=== PATIENT | male | born 1935 | race Caucasian/White ===

== ENCOUNTER 2018-11-27 11:59 | Observation (INO) ==
[2018-11-27] MEDS ORDERED: Isovue-370 500 ML BOTTLE IVP ONE (12:41)
[2018-11-27 12:51] LABS: Basophils # 0.1 K/mcL (0.0-0.2); Basophils % 0.5 %; Eosinophils # 0.5 K/mcL (0.0-0.6); Eosinophils % 4.1 %; Hematocrit 43.5 % (37.5-50.1); Hemoglobin 15.2 g/dL (12.9-16.9); Immature Granulocytes % 0.5 % (0-4); Lymphocytes # 1.2 K/mcL (0.6-4.6); Lymphocytes % 10.9 %; Mean Corpuscular HGB Conc 34.9 g/dL (31.6-35.5); Mean Corpuscular Hemoglobin 31.2 pg (28.0-33.3); Mean Corpuscular Volume 89.3 fL (83.0-100.0); Monocytes # 0.8 K/mcL (0.0-1.3); Monocytes % 7.3 %; Neutrophils # 8.5 K/mcL (1.6-8.9); Platelet Count 190 K/mcL (140-400); Red Blood Count 4.87 M/mcL (4.19-5.50); Red Cell Distribution Width 12.6 % (11.5-14.5); Segmented Neutrophils % 76.7 %
[2018-11-27 13:15] LABS: BUN/Creatinine Ratio 7 (6-26); Blood Urea Nitrogen 9 mg/dL (8-23); Calcium 9.7 mg/dL (8.6-10.3); Carbon Dioxide 26 mEq/L (23-29); Chloride 94 mEq/L (98-107); Glucose 108 mg/dL (70-105); Osmolality,Calculated 269 (280-300); Potassium 3.6 mEq/L (3.5-5.1); Sodium 130 mEq/L (136-145); eGFR For Non-African Americans 56 (> 60)
[2018-11-27 13:16] LABS: Troponin I < 0.03 ng/mL (< 0.04)
[2018-11-27] MEDS ORDERED: Ipratropium/Albuterol Neb 3 ML IH ONE (15:04)
[2018-11-27] MEDS ORDERED: methylPREDNISolone 125 MG/2 ML VIAL IVP ONE (15:13)
--- NOTE | 2018-11-27 16:27 | Emergency Department Note ---
Disposition Clinical Impression: Hypoxia, COUCH (dyspnea on exertion) Disposition: Admitted As Inpatient Condition: Fair Referrals: Anam Turner DO [Primary Care Provider] - Time of Disposition: 15:30 SOB HPI - General Chief Complaint: ED Shortness of Breath/Dyspnea Stated Complaint: SOB Time Seen by Provider: 11/27/18 12:09 Source: patient Mode of arrival: ambulatory Limitations: no limitations Nursing Notes Reviewed: Yes Vital Signs Reviewed: Yes - History of Present Illness 83-year-old male brought to emergency department for further evaluation of shortness of breath. Patient states he has shortness breath is worsening over the past 2 weeks. He was treated by Dr. turner for his dyspnea with exertion. Patient presented to an urgent care today, was given DuoNeb and Solu-Medrol, he was transferred to the emergency department for further evaluation. Patient denies fever however he reports cough productive of yellow sputum. Patient states he is scheduled for CTA of his chest and home hypotension testing outpatient within the next week. Today the patient is hypoxic during his initial evaluation and was placed on oxygen in the emergency department. He does not usually wear oxygen at home. No history of tobacco abuse however he is been surrounded by secondhand smoke intermittently during his life. - Related Data Home Medications Medication Instructions Recorded Confirmed Cholecalciferol (D-3) [Vitamin D] 2,000 unit PO DAILY 11/27/18 11/27/18 Levothyroxine [Synthroid] 50 mcg PO 0630 11/27/18 11/27/18 Losartan [Cozaar] 50 mg PO DAILY 11/27/18 11/27/18 Pantoprazole Sodium [Protonix] 40 mg PO DAILY 11/27/18 11/27/18 Rosuvastatin [Crestor] 40 mg PO HS 11/27/18 11/27/18 Allergies Allergy/AdvReac Type Severity Reaction Status Date / Time codeine Allergy Hypertensio Verified 11/27/18 10:46 n All systems ED: reviewed and negative except as stated. Review of Systems: As Per HPI Past Medical History - Past Medical History Attestation: Yes The following information was validated with the patient. Source: patient Medical history: Reports: hyperlipidemia, hypertension, thyroid disease - Social History Smoking Status: Never smoker Smokeless Tobacco Status: No Alcohol use: Reports: occasionally Drug use: Reports: none Physical Exam General: Alert and in no acute distress Skin: Warm, dry, intact Head: Normocephalic and atraumatic Neck: Supple, trachea midline and no tenderness Cardiovascular: RRR, no murmur, normal perfusion Respiratory: Mild wheezing the bilateral posterior lung yost without evidence of rhonchi or crackles. Musculoskeletal: Normal strength, no tenderness, swelling or deformity GI: Soft, nontender, nondistended. Bowel sounds present Neuro: A&O to person, place, time and situation. No focal deficits noted on exam Psychiatric: cooperative and appropriate mood and affect. - General General appearance: alert, in no apparent distress Course Vital Signs Temperature 99.0 F 11/27/18 12:03 Pulse Rate 99 11/27/18 12:03 Respiratory Rate 23 11/27/18 12:03 Blood Pressure 144/69 11/27/18 12:03 O2 Sat by Pulse Oximetry 89 11/27/18 12:03 Temperature 99.0 F 11/27/18 12:03 Pulse Rate 83 11/27/18 14:55 Respiratory Rate 17 11/27/18 16:01 Blood Pressure 147/66 11/27/18 14:55 O2 Sat by Pulse Oximetry 90 11/27/18 16:01 Oxygen Delivery Oxygen Delivery Nasal Cannula Shortness of Breath/Dyspnea - [facility] Narrative Medical decision making narrative: Patient desaturated to 87% when taken off oxygen in the emergency department while he was at rest. Patient was given Solu-Medrol at the urgent care prior to arrival. He was given additional DuoNeb times in the emergency department. CTA of the chest did not reveal evidence of PE or acute infiltrate. He will be admitted to hospitalist for further care and evaluation of his hypoxia. - Lab Data Result diagrams: 11/27/18 12:38 11/27/18 12:38 Lab Results 11/27/18 11/27/18 11/27/18 Range/Units 12:38 12:38 12:38 WBC 11.1 (4.3-11.1) K/mcL RBC 4.87 (4.19-5.50) M/mcL Hgb 15.2 (12.9-16.9) g/dL Hct 43.5 (37.5-50.1) % MCV 89.3 (83.0-100.0) fL MCH 31.2 (28.0-33.3) pg MCHC 34.9 (31.6-35.5) g/dL RDW 12.6 (11.5-14.5) % Plt Count 190 (140-400) K/mcL MPV 9.0 L (9.4-12.4) fL Immature Gran % 0.5 (0-4) % Seg Neutrophils % 76.7 % Lymphocytes % 10.9 % Monocytes % 7.3 % Eosinophils % 4.1 % Basophils % 0.5 % Neutrophils # 8.5 (1.6-8.9) K/mcL Lymphocytes # 1.2 (0.6-4.6) K/mcL Monocytes # 0.8 (0.0-1.3) K/mcL Eosinophils # 0.5 (0.0-0.6) K/mcL Basophils # 0.1 (0.0-0.2) K/mcL Sodium 130 L (136-145) mEq/L Potassium 3.6 (3.5-5.1) mEq/L Chloride 94 L (98-107) mEq/L Carbon Dioxide 26 (23-29) mEq/L BUN 9 (8-23) mg/dL Creatinine 1.23 (0.70-1.30) mg/dL Est GFR ( Amer) > 60 (> 60) Est GFR (Non-Af Amer) 56 L (> 60) BUN/Creatinine Ratio 7 (6-26) Glucose 108 H (70-105) mg/dL Calculated Osmolality 269 L (280-300) Lactic Acid 1.4 (0.5-2.2) mmol/L Calcium 9.7 (8.6-10.3) mg/dL Troponin I < 0.03 (< 0.04) ng/mL B-Natriuretic Peptide (Less than 100) pg/mL 11/27/18 Range/Units 12:38 WBC (4.3-11.1) K/mcL RBC (4.19-5.50) M/mcL Hgb (12.9-16.9) g/dL Hct (37.5-50.1) % MCV (83.0-100.0) fL MCH (28.0-33.3) pg MCHC (31.6-35.5) g/dL RDW (11.5-14.5) % Plt Count (140-400) K/mcL MPV (9.4-12.4) fL Immature Gran % (0-4) % Seg Neutrophils % % Lymphocytes % % Monocytes % % Eosinophils % % Basophils % % Neutrophils # (1.6-8.9) K/mcL Lymphocytes # (0.6-4.6) K/mcL Monocytes # (0.0-1.3) K/mcL Eosinophils # (0.0-0.6) K/mcL Basophils # (0.0-0.2) K/mcL Sodium (136-145) mEq/L Potassium (3.5-5.1) mEq/L Chloride (98-107) mEq/L Carbon Dioxide (23-29) mEq/L BUN (8-23) mg/dL Creatinine (0.70-1.30) mg/dL Est GFR ( Amer) (> 60) Est GFR (Non-Af Amer) (> 60) BUN/Creatinine Ratio (6-26) Glucose (70-105) mg/dL Calculated Osmolality (280-300) Lactic Acid (0.5-2.2) mmol/L Calcium (8.6-10.3) mg/dL Troponin I (< 0.04) ng/mL B-Natriuretic Peptide 34 (Less than 100) pg/mL
--- NOTE | 2018-11-27 18:24 | Internal Med History&Physical ---
Date of Encounter: 11/27/18 Time of Encounter: 15:00 Internal Medicine - H&P: HPI Chief complaint: Short of breath Admitted From: Home Plans for Post Hospital Care: Home History of present illness: Patient is an 83-year-old male with past medical history significant for hypothyroid and hyperlipidemia who presents due to shortness of breath. Patient reports a two-month history of dyspnea on exertion that has gradually worsened over the last 24 hours with associated symptoms of productive cough yellowish in color. Patient denies any fevers or chills. Patient came into the ER for further evaluation. In the ER, patient was found to be in acute hypoxic respiratory failure requiring supplemental oxygenation. Chest x-ray and CTA negative for any acute findings except for thickened lining of bronchial suggestive of possible bronchitis. He received 1 dose of Solu-Medrol and DuoNebs with improvement in symptoms. He will be admitted for medical management for reactive airway disease. Past Med Surg Social Fam HX - Past Medical History Medical history: hyperlipidemia, hypertension, thyroid disease - Past Surgical History Surgical History: non-contributory - Social History Smoking Status: Never smoker Smokeless Tobacco Status: No Alcohol use: occasionally Drug use: none Internal Medicine - H&P: Meds Cholecalciferol (D-3) [Vitamin D] 2,000 unit PO DAILY 11/27/18 [History] Levothyroxine [Synthroid] 50 mcg PO 0630 11/27/18 [History] Losartan [Cozaar] 50 mg PO DAILY 11/27/18 [History] Pantoprazole Sodium [Protonix] 40 mg PO DAILY 11/27/18 [History] Rosuvastatin [Crestor] 40 mg PO HS 11/27/18 [History] Allergy/AdvReac Type Severity Reaction Status Date / Time codeine Allergy Hypertensio Verified 11/27/18 10:46 n All Systems PM: A 10-system review of systems was performed and is negative for pertinent findings except as documented above in the HPI. - Constitutional Vitals: Temp Pulse Resp BP Pulse Ox 98.0 F 90 17 159/85 91 11/27/18 17:57 11/27/18 17:57 11/27/18 17:57 11/27/18 17:57 11/27/18 17:57 Exam: General appearance: Present: A&O X 3, no acute distress - Head Head exam: Present: normocephalic - Eye Eye exam: Present: normal appearance - ENT ENT exam: Present: mucous membranes moist - Respiratory Respiratory exam: Present: CTAB. Absent: accessory muscle use, rales, rhonchi, wheezes - Cardiovascular Cardiovascular exam: Present: RRR, +S1, +S2. Absent: diastolic murmur, gallop, rubs, systolic murmur - GI/Abdominal GI/Abdominal exam: Present: normal bowel sounds, soft, no peritoneal signs. Absent: distended, tenderness - Extremities Exam Extremities exam: Absent: pedal edema - Neurological Exam Neurological exam: Present: alert, oriented X3, no focal deficits. Absent: altered - Psychiatric Psychiatric exam: -normal mood Skin exam: -normal color Internal Med - H&P Results - Labs CBC & Chem 7: 11/27/18 12:38 11/27/18 12:38 Labs: Short CBC 11/27/18 Range/Units 12:38 WBC 11.1 (4.3-11.1) K/mcL Hgb 15.2 (12.9-16.9) g/dL Hct 43.5 (37.5-50.1) % Plt Count 190 (140-400) K/mcL Neutrophils # 8.5 (1.6-8.9) K/mcL BMP 11/27/18 12:38 Sodium 130 L Potassium 3.6 Chloride 94 L Carbon Dioxide 26 BUN 9 Creatinine 1.23 Glucose 108 H Calcium 9.7 Cardiac Enzymes 11/27/18 Range/Units 12:38 Troponin I < 0.03 (< 0.04) ng/mL - Impressions ITS Impressions Chest X-Ray 11/27/18 12:16 IMPRESSION: No definite radiographic evidence of acute cardiopulmonary disease. Pulmonary sequela typical of that seen with smoking, including possible emphysema; correlate with clinical history. D/ / Riky Park / Riky Park Interpreting Provider: Riky Park Chest CTA 11/27/18 12:41 IMPRESSION: 1. No evidence of pulmonary embolism 2. Bronchial wall thickening with left basilar atelectasis. Correlate with any clinical findings of bronchitis D/ / Christiano Bloom MD / Christiano Bloom MD Interpreting Provider: Christiano Bloom MD - Assessment and Plan (1) Acute respiratory failure with hypoxia Current Visit: Yes Status: Acute Assessment and plan: Patient reports shortness of breath over the last 2 months which has gotten worse in the last 24 hours who presents in acute hypoxic respiratory failure. Imaging of the chest negative for any infiltrates; will order respiratory panel Continue supplemental oxygenation and wean as tolerates (2) HTN (hypertension), benign Current Visit: Yes Status: Acute Assessment and plan: Continue home dose of the losartan (3) Hypothyroid Current Visit: Yes Status: Acute Assessment and plan: Continue home dose of levothyroxine Qualifiers: Hypothyroidism type: unspecified Qualified Code(s): E03.9 - Hypothyroidism, unspecified (4) GERD (gastroesophageal reflux disease) Current Visit: Yes Status: Acute Assessment and plan: Continue home dose of PPI Qualifiers: Qualified Code(s): K21.9 - Gastro-esophageal reflux disease without esophagitis (5) DVT prophylaxis Current Visit: Yes Status: Acute Assessment and plan: Subcutaneous heparin - Time Spent With Patient Total time spent is greater than 50% in coordination of care (as documented) at patient's floor/unit and/or counseling patient:
[2018-11-27] MEDS ORDERED: Naloxone 0.4 MG/ML INJ IVP PRN (18:38)
[2018-11-27] MEDS: Ipratropium/Albuterol Neb 3 ML IH SCH ×2 (20:31→23:57)
[2018-11-27] MEDS: *HR* Heparin 5,000 UNIT/ML VIAL SQ SCH (21:14)
[2018-11-27 22:33] LABS: Adenovirus Not Detected (Not Detect); Bordetella Pertussis Not Detected (Not Detect); Chlamydophila pneumoniae Not Detected (Not Detect); Coronavirus 229E Not Detected (Not Detect); Coronavirus HKU1 Not Detected (Not Detect); Coronavirus NL63 Not Detected (Not Detect); Coronavirus OC43 DETECTED (Not Detect); Human Metapneumovirus Not Detected (Not Detect); Human Rhinovirus/Enterovirus Not Detected (Not Detect); Influenza A Subtype 2009 H1 Not Detected (Not Detect); Influenza A Untypeable Not Detected (Not Detect); Influenza B Not Detected (Not Detect); Mycoplasma pneumoniae Not Detected (Not Detect); Parainfluenza Virus 1 Not Detected (Not Detect); Parainfluenza Virus 2 Not Detected (Not Detect); Parainfluenza Virus 3 Not Detected (Not Detect); Parainfluenza Virus 4 Not Detected (Not Detect); Respiratory Syncytial Virus Not Detected (Not Detect)
[2018-11-28] MEDS: methylPREDNISolone 125 MG/2 ML VIAL IVP SCH ×2 (00:59→09:55)
[2018-11-28] MEDS: Ipratropium/Albuterol Neb 3 ML IH SCH ×3 (04:32→11:11)
[2018-11-28] MEDS: *HR* Heparin 5,000 UNIT/ML VIAL SQ SCH ×2 (06:06→13:55)
[2018-11-28 07:39] LABS: Basophils % 0.1 %; Hematocrit 40.6 % (37.5-50.1); Hemoglobin 14.3 g/dL (12.9-16.9); Immature Granulocytes % 0.5 % (0-4); Lymphocytes # 0.6 K/mcL (0.6-4.6); Lymphocytes % 4.7 %; Mean Corpuscular HGB Conc 35.2 g/dL (31.6-35.5); Mean Corpuscular Volume 88.1 fL (83.0-100.0); Mean Platelet Volume 9.2 fL (9.4-12.4); Monocytes # 0.3 K/mcL (0.0-1.3); Monocytes % 2.3 %; Neutrophils # 10.8 K/mcL (1.6-8.9); Platelet Count 212 K/mcL (140-400); Red Blood Count 4.61 M/mcL (4.19-5.50); Red Cell Distribution Width 12.5 % (11.5-14.5); Segmented Neutrophils % 92.4 %
[2018-11-28 07:59] LABS: BUN/Creatinine Ratio 10 (6-26); Blood Urea Nitrogen 12 mg/dL (8-23); Calcium 9.3 mg/dL (8.6-10.3); Carbon Dioxide 23 mEq/L (23-29); Chloride 95 mEq/L (98-107); Glucose 190 mg/dL (70-105); Osmolality,Calculated 275 (280-300); Potassium 3.7 mEq/L (3.5-5.1); Sodium 130 mEq/L (136-145); eGFR For Non-African Americans 58 (> 60)
[2018-11-28] MEDS ORDERED: Cholecalciferol (D-3) 1,000 UNIT TABLET PO SCH (09:00)
[2018-11-28] MEDS ORDERED: Chloraseptic Spray 177 ML BOTTLE MM PRN (14:19)
--- NOTE | 2018-11-28 14:42 | Discharge Summary ---
Date of Encounter: 11/28/18 Time of Encounter: 14:40 - Discharge Diagnosis (1) Acute respiratory failure with hypoxia Priority: Primary Status: Acute (2) Coronavirus infection Priority: Primary Status: Acute (3) HTN (hypertension), benign Priority: Secondary Status: Chronic (4) Hypothyroid Priority: Secondary Status: Chronic Qualifiers: Hypothyroidism type: unspecified Qualified Code(s): E03.9 - Hypothyroidism, unspecified (5) GERD (gastroesophageal reflux disease) Priority: Secondary Status: Chronic Qualifiers: Esophagitis presence: without esophagitis Qualified Code(s): K21.9 - Gastro-esophageal reflux disease without esophagitis Hospital course: Mr. Benítez is a 83 year old male with history of hypertension and hypothyroidism presented with shortness of breath and cough. He was noted to be mildly hypoxic in the emergency department. Respiratory infection panel testing revealed coronavirus. No evidence of bacterial infection. The next morning the patient felt better and was no longer requiring oxygen. He did perform a 6 minute walk test and did not have desaturation with ambulation. Discussed with patient and he wishes to go home. Patient provided with a nebulizer and steroids to complete a five-day course. Patient discharged home in stable condition. Discharge discussed with: patient - Time Spent with Patient Total time spent providing and/or coordinating discharge services: - Discharge Medications Prescriptions: New Ipratropium/Albuterol Neb [Duoneb] 3 ml IH [id number] #120 inhsol predniSONE [PredniSONE] 40 mg PO DAILY #5 tablet Continue Cholecalciferol (D-3) [Vitamin D] 2,000 unit PO DAILY Levothyroxine [Synthroid] 50 mcg PO 0630 Losartan [Cozaar] 50 mg PO DAILY Pantoprazole Sodium [Protonix] 40 mg PO DAILY Rosuvastatin [Crestor] 40 mg PO HS Home Medications: Cholecalciferol (D-3) [Vitamin D] 2,000 unit PO DAILY 11/27/18 [History] Levothyroxine [Synthroid] 50 mcg PO 0630 11/27/18 [History] Losartan [Cozaar] 50 mg PO DAILY 11/27/18 [History] Pantoprazole Sodium [Protonix] 40 mg PO DAILY 11/27/18 [History] Rosuvastatin [Crestor] 40 mg PO HS 11/27/18 [History] Ipratropium/Albuterol Neb [Duoneb] 3 ml IH [id number] #120 inhsol 11/28/18 [Rx] predniSONE [PredniSONE] 40 mg PO DAILY #5 tablet 11/28/18 [Rx] Allergies/Adverse Reactions: Allergy/AdvReac Type Severity Reaction Status Date / Time codeine Allergy Hypertensio Verified 11/27/18 10:46 n Date of admission: 11/27/18 16:20 Primary care physician: Anam Turner Discharging clinician: Isidro Foley Anticipated date of discharge: 11/28/18 - Constitutional Vitals: Temp Pulse Resp BP Pulse Ox 97.9 F 100 16 159/75 89 11/28/18 11:20 11/28/18 11:20 11/28/18 11:20 11/28/18 11:20 11/28/18 11:20 General appearance: Present: A&O X 3 Exam: . - Respiratory Respiratory exam: Present: CTAB. Absent: rales, respiratory distress, rhonchi, wheezes, tachypnea - Cardiovascular Cardiovascular exam: Present: RRR. Absent: gallop, rubs, systolic murmur - Patient Status Disposition: Home, Self-Care Condition: Fair Functional capacity at discharge: independent ambulation Overall status at discharge: patient is progressing back to baseline - Discharge Instructions Follow Up With: Anam Turner DO [Primary Care Provider] - (1 week) Forms: ED Satisfaction Letter Additional Instructions: Please follow-up with your primary care physician within one week. Please take your steroids until complete. Please use your nebulizer up to 4 times a day as needed for shortness of breath and wheezing. Please resume your home medications. Please return for any new or worsening symptoms - Diet and Activity Activity: other (Use nebulizer as needed) Diet: advance to your usual diet
[2018-11-28 15:25] VITALS: BP 128/61
--- NOTE | 2018-11-28 17:59 | Electrocardiograph Report ---
[place] [id number] Test Date: 2018-11-27 Pat Name: Mihceal Benítez Department: EXAM6 Room: 2NE18 Gender: M [employer] Chair: : 1935 Requested By: Ken Duran Order Number: [id number] Reading MD: Mike Walker Measurements Intervals [place] Rate: 87 P: 79 PA: 147 QRS: -59 QRSD: 139 T: 70 QT: 405 QTc: 488 Interpretive Statements Sinus rhythm RBBB and LAFB Electronically Signed On 11-28-2018 17:58:01 EDT by Mike Walker
== END 2018-11-28 16:24 | disposition home or self-care (01) ==
LOC: 2NENU 11:59 → EMEROOARM 11:59 → SUATTDRO 16:20 → 2NENU 17:41
PROVIDERS: ADMIT Hospitalist; ATTEND Internal Medicine